=== PATIENT | male | born 1955 | race Caucasian/White ===

== ENCOUNTER → 2018-06-30 | Day surgery (SDC) | payer OTHER ==
[~2018-06-30] MED LIST: FENTANYL CITRATE/PF 100MCG/2 ML INJ ONE; MIDAZOLAM HCL 2 MG/2 ML VIAL ONE; MULTIVITAMINS1 EAC7 PO; OR PHACO EYE KIT ONE; PREOP PHACO EYE KIT ONE
--- OUTSIDE RECORDS SUMMARY | 2018-06-30 10:12 | XMS REPORT | Clinical Summary ---
Author Author [facility] Organization [facility] Address Unknown Phone Unavailable Care Team Providers Care Automobile Locator Name Role Phone Leslye Cottrell MD PCP Allergies No Known Allergies Medications No known medications Active Problems Not on file Encounters Care Team Description Date Type Specialty Guilherme Maxwell MD 10/13/2017 Telephone Gastroenterology Guilherme Maxwell MD 09/22/2017 Lab Lab Guilherme Maxwell MD 08/18/2017 Telephone Gastroenterology Guilherme Maxwell MD 08/08/2017 Telephone Gastroenterology after 06/29/2017 Social History Date Tobacco Use Types Packs/Day Years Used Never Assessed Sex Assigned at Date Recorded Not on file Industry Job Start Date Occupation Not on file Not on file Not on file Travel End Travel History Travel Start No recent travel history available. Last Filed Vital Signs Not on file Plan of Treatment Health Maintenance Due Date Last Done Comments SHINGLES VACCINES (#1) 2004 COLON CANCER SCREENING 09/22/2018 09/22/2017 INFLUENZA VACCINE 10/15/2018 Procedures Comments Procedure Name Priority Date/Time Associated Diagnosis SURGICAL PATHOLOGY Routine 09/22/2017 REQUEST 3:42 PM CDT after 06/29/2017 Results * Surgical pathology request (09/22/2017 3:42 PM CDT) [facility] DEPARTMENT OF PATHOLOGY AND GENOMIC MEDICINE Surgical pathology report See link below for PDF Lab [facility] DEPARTMENT OF Report PATHOLOGY AND GENOMIC MEDICINE Result status This is Final Report to [facility] DEPARTMENT OF [id number] PATHOLOGY AND GENOMIC MEDICINE Performing Organization Address City/State/Zipcode Phone Number [facility] DEPARTMENT OF [address] [place] [phone] PATHOLOGY AND GENOMIC MEDICINE after 06/29/2017 Insurance Payer Benefit Subscriber ID Type Phone Address Plan / Group [facility] xxxxxxxxx HMO/PPO THCARE CHOICE/CHO ICE + Advance Directives Patient has advance care planning documents on file. For more information, kendy dejesus contact: Bright Swift [address] [place] [address]
[2018-06-30 12:45] VITALS: BP 120/76
== END | disposition home or self-care (01) ==
LOC: OR 10:10
PROVIDERS: ATTEND Ophthalmology
DX: H25.12 Age-related nuclear cataract, left eye (principal); I34.1 Nonrheumatic mitral (valve) prolapse; D12.6 Benign neoplasm of colon, unspecified; E78.5 Hyperlipidemia, unspecified; R00.2 Palpitations; Z79.82 Long term (current) use of aspirin
CPT/HCPCS: 66984; J2250

== ENCOUNTER → 2018-07-21 | Day surgery (SDC) | payer OTHER ==
--- OUTSIDE RECORDS SUMMARY | 2018-07-21 10:57 | XMS REPORT | Clinical Summary ---
Author Author [facility] Organization [facility] Address Unknown Phone Unavailable Care Team Providers Care Math Coach Name Role Phone Leslye Cottrell MD PCP Allergies No Known Allergies Medications No known medications Active Problems Not on file Encounters Care Team Description Date Type Specialty Guilherme Maxwell MD 10/13/2017 Telephone Gastroenterology Guilherme Maxwell MD 09/22/2017 Lab Lab Guilherme Maxwell MD 08/18/2017 Telephone Gastroenterology Guilherme Maxwell MD 08/08/2017 Telephone Gastroenterology after 07/20/2017 Social History Date Tobacco Use Types Packs/Day [...] Routine 09/22/2017 REQUEST 3:42 PM CDT after 07/20/2017 Results * Surgical pathology request (09/22/2017 3:42 PM CDT) [facility] DEPARTMENT OF PATHOLOGY AND GENOMIC MEDICINE Surgical pathology report See link below for PDF Lab [facility] DEPARTMENT OF Report PATHOLOGY AND GENOMIC MEDICINE Result status This is Final Report to [facility] DEPARTMENT OF [id number] PATHOLOGY AND GENOMIC MEDICINE Performing Organization Address City/State/Zipcode Phone Number [facility] DEPARTMENT OF [address] [place] [phone] PATHOLOGY AND GENOMIC MEDICINE after 07/20/2017 Insurance Payer Benefit Subscriber ID Type Phone Address Plan / Group [facility] xxxxxxxxx HMO/PPO THCARE CHOICE/CHO ICE + Advance Directives Patient has advance care planning documents on file. For more information, kendy dejesus contact: [facility] [address] [place] [address]
== END | disposition home or self-care (01) ==
LOC: OR 10:54
PROVIDERS: ATTEND Ophthalmology
DX: H25.11 Age-related nuclear cataract, right eye (principal); I34.1 Nonrheumatic mitral (valve) prolapse; K57.90 Diverticulosis of intestine, part unspecified, without perforation or abscess without bleeding; Z87.01 Personal history of pneumonia (recurrent); Z85.820 Personal history of malignant melanoma of skin
CPT/HCPCS: 66984; J2250; V2632